=== PATIENT | male | born 1990 | race Caucasian/White ===

== ENCOUNTER 2023-12-27 08:00 | Emergency (ER) | payer OTHER ==
[~2023-12-27] VITALS: Ht 182.9 cm; Wt 91.0 kg
[2023-12-27 08:06] VITALS: BP 107/69; PULSE 119; RESP 18; TEMP 98.3; O2SAT 100
== END 2023-12-27 08:12 | disposition home or self-care (01) ==
LOC: ER 08:00
DX: Z00.00 Encounter for general adult medical examination without abnormal findings (principal)
CPT/HCPCS: 99283